=== PATIENT | male | born 1990 | race Caucasian/White ===

== ENCOUNTER 2016-08-05 16:41 | Emergency (ER) | payer SELFPAY ==
[2016-08-05] MEDS ORDERED: SODIUM CHLORIDE 0.9% 1,000 ML ONE (17:14)
[2016-08-06] MEDS ORDERED: CEFTRIAXONE 1 GM VIAL ONE (00:48)
[2016-08-06] MEDS ORDERED: ONDANSETRON 4 MG VIAL ONE (00:48)
[2016-08-06] MEDS ORDERED: KETOROLAC 30 MG/ML VIAL ONE (00:48)
[2016-08-06] MEDS ORDERED: SODIUM CHLORIDE 0.9% 1,000 ML ONE (00:49)
[2016-08-06] MEDS ORDERED: SODIUM CHLORIDE 0.9% 100 ML IV ONE (00:49)
== END 2016-08-05 19:18 | disposition home or self-care (01) ==
LOC: ER 16:41
DX: F12.10 Cannabis abuse, uncomplicated (principal)
CPT/HCPCS: 36415; 70450; 80053; 80307; 80320; 80329; 81001; 84439; 84443; 85025; 85610; 93005; 96360; 96361